=== PATIENT | female | born 1960 | race Two or more races ===

== ENCOUNTER → 2017-06-10 | Outpatient (CLI) | payer MEDICARE, MEDICAID ==
--- NOTE | 2017-06-11 08:14 | XCELERA REPORT ---
[address] [address] Lower Extremity Venous Evaluation Name: JESUS MANUEL BROWN Age: 57 yrs Gender: Female : 1960 Patient Status: Outpatient Patient Location: Study Date: 06/10/2017 10:22 AM Procedure: Color flow and duplex imaging of the veins of the left lower extremity as well as the right Common Femoral vein. Reason For Study: LLE SWELLING Ordering Physician: Nancy MELISSA Performed By: Girish Campo Right Sided Venous Evaluation The right common femoral vein is fully compressible. Spontaneous and phasic flow is present in the right common femoral vein. Left Sided Venous Evaluation Normal vessel filling wall to wall, compression and augmentation as well as Colour flow down to the infrageniculate veins. Interpretation Summary No duplex evidence of DVT or obstruction in the left lower extremity nor in the right Common Femoral vein. : Nancy MELISSA [place]
== END ==
LOC: SP 10:05
PROVIDERS: ATTEND Internal Medicine Nephrology
DX: I82.402 Acute embolism and thrombosis of unspecified deep veins of left lower extremity (principal); M79.89 Other specified soft tissue disorders; N18.6 End stage renal disease
CPT/HCPCS: 93971